=== PATIENT | female | born 1985 | race Caucasian/White ===

== ENCOUNTER 2024-11-26 08:21 | Outpatient (CLI) | payer MEDICAID ==
[2024-11-26] MEDS ORDERED: Iopamidol-370 76% 500 ML MDV (1 ML CHARGE) ONE (10:22)
== END 2024-11-26 08:22 | disposition home or self-care (01) ==
LOC: CT 08:21
PROVIDERS: ATTEND Physician Assistant Medical
DX: K44.9 Diaphragmatic hernia without obstruction or gangrene (principal); R10.9 Unspecified abdominal pain; R05.3 Chronic cough; K42.9 Umbilical hernia without obstruction or gangrene
CPT/HCPCS: 74177; Q9967

== ENCOUNTER 2024-12-21 12:09 | Emergency (ER) | payer MEDICAID ==
[2024-12-21 13:26] LABS: #Basophils 0.03 10x3/uL (0.0-0.2); #Eosinophils 0.17 10x3/uL (0.0-0.7); #Monocytes 0.38 10x3/uL (0.11-0.59); #Neutrophils 6.18 10x3/uL (1.40-6.50); %Basophils 0.4 % (0.0-1.0); %Eosinophils 2.1 % (0.0-10.0); %Lymphocytes 17.0 % (21.0-51.0); %Monocytes 4.6 % (0.0-10.0); %Neutrophils 75.5 % (42.0-75.0); Hematocrit 39.7 % (36.0-47.0); Hemoglobin 12.5 g/dL (12.0-16.0); Mean Corpuscular Hemoglobin 27.7 pg (27.0-31.0); Mean Corpuscular Volume 88.0 fL (78.0-98.0); Platelet Count 340 10x3/uL (130-400); Red Blood Cell (RBC) Count 4.51 mill/uL (4.20-5.40); White Blood Cell (WBC) Count 8.18 10x3/uL (4.8-10.8)
[2024-12-21 13:29] LABS: Actual Bicarbonate (HCO3a) 30.2 mEq/L (22-28); Analyzer IN Cardio ER; Base Excess (BEa) 5.0 mEq/L (-2.0 to +3.0); CO2 Tension 46.7 mmHg (35.0-45.0); Calcium, Ionized (arterial) 1.13 mmol/L (1.12-1.30); Hematocrit-ABG 39 % (36.0-47.0); Hemoglobin (Hb) 13.1 g/dL (12.0-16.0); O2 Tension (PaO2), arterial 60.1 mmHg (80.0-100.0); Potassium - ABG Lab 3.73 mmol/L (3.70-5.30); pH, Arterial 7.428 (7.35-7.45)
[2024-12-21 13:31] LABS: ALV-art Gradient 31.255 mmHg (0-20); Puncture Site Right Radial artery
[2024-12-21 13:52] LABS: ALT (SGPT) 13 U/L (Less than 34); AST (SGOT) 11 U/L (11-34); Albumin 3.2 g/dL (3.1-4.5); Alkaline Phosphatase 99 U/L (40-110); Anion Gap 14 mmol/L (10-20); BUN (Urea Nitrogen) 12 mg/dL (7.0-18.7); Bilirubin, Total 0.2 mg/dL (0.3-1.2); Calc. Creatinine Clearance 0 mL/min (70-130); Calcium 8.9 mg/dL (7.8-10.44); Carbon Dioxide 28 mmol/L (22-29); Chloride 102 mmol/L (98-107); Globulin 3.6 g/dL (2.4-3.5); Glucose 98 mg/dL (70-105); Potassium 3.8 mmol/L (3.5-5.1); Sodium 140 mmol/L (136-145)
== END 2024-12-21 14:35 | disposition home or self-care (01) ==
LOC: ERS 12:09
DX: R06.02 Shortness of breath (principal)
CPT/HCPCS: 36600; 71045; 80053; 82805; 83880; 84484; 85025; 87428; 93005

== ENCOUNTER 2024-12-31 05:42 | Day surgery (SDC) | payer OTHER ==
[2024-12-30 08:39] VITALS: BMI 49.7
[2024-12-31] MEDS ORDERED: PROPOFOL 40 ML ONE (07:09)
[2024-12-31] MEDS ORDERED: Ketamine In 0.9 % NaCl 50 MG/5 ML SYRINGE ONE (07:09)
[2024-12-31] MEDS ORDERED: Lidocaine 1% PF 5 ML VIAL ONE (07:10)
[2024-12-31] MEDS ORDERED: SUGAMMADEX SODIUM 200 MG/2 ML VIAL ONE (07:43)
[2024-12-31] MEDS ORDERED: Rocuronium Bromide 10 MG/ML (10ML VIAL) ONE (07:50)
[2024-12-31] MEDS ORDERED: Ondansetron PF 4 MG/2 ML Vial ONE (08:34)
== END 2024-12-31 09:40 | disposition home or self-care (01) ==
LOC: SDC 05:42
PROVIDERS: ATTEND Internal Medicine
PROC: 0DB98ZX Excision of Duodenum, Via Natural or Artificial Opening Endoscopic, Diagnostic (ICD-10-PCS; principal; 2024-12-31)
PROC: 0DB68ZX Excision of Stomach, Via Natural or Artificial Opening Endoscopic, Diagnostic (ICD-10-PCS; principal; 2024-12-31)
DX: K29.50 Unspecified chronic gastritis without bleeding (principal); K44.9 Diaphragmatic hernia without obstruction or gangrene; K21.9 Gastro-esophageal reflux disease without esophagitis; Z91.040 Latex allergy status; Z88.2 Allergy status to sulfonamides; Z88.1 Allergy status to other antibiotic agents; Z79.899 Other long term (current) drug therapy
CPT/HCPCS: 88305; 88342; J1100; J2250; J2405; J2704; J3010; J3490